=== PATIENT | female | born 1965 | race Caucasian/White ===

== ENCOUNTER 2020-05-14 18:20 | Emergency (ER) | payer OTHER ==
[~2020-05-14] VITALS: Ht 162.6 cm; Wt 63.5 kg
[2020-05-14] MEDS ORDERED: SODIUM CHLORIDE 0.9% 1,000 ML IVB ONE (19:30)
[2020-05-14 19:46] LABS: Basophils # (auto) 0.1 10 ^3/uL (0-0.2); Basophils % (auto) 0.7 % (0.0-2.0); Eosinophils # (auto) 0.1 10 ^3/uL (0-0.8); Eosinophils % (auto) 0.7 % (0.0-7.0); Hematocrit 36.5 % (36.0-46.0); Hemoglobin 12.6 g/dL (12.2-16.2); Mean Corpuscular Hemoglobin 32.8 pg (28.0-32.0); Mean Corpuscular Hgb Conc. 34.5 g/dL (32.0-36.0); Mean Corpuscular Volume 95.2 fL (80.0-100.0); Monocytes # (auto) 0.8 10 ^3/uL (0-1.3); Monocytes % (auto) 6.2 % (0.0-12.0); Neutrophils # (auto) 8.2 10 ^3/uL (1.6-8.6); Neutrophils % (auto) 67.4 % (37.0-80.0); Platelet Count (auto) 376 10^3/uL (140-450); Red Blood Cells 3.84 10^6/uL (4.0-5.20); Red Cell Distribution Width 13.7 % (11.8-14.3); White Blood Cell 12.2 10^3/uL (4.4-10.8)
[2020-05-14 20:02] LABS: Albumin 3.3 g/dL (3.4-5.0); Calcium 8.3 mg/dL (8.5-10.1); Magnesium 2.1 mg/dL (1.6-2.6); Potassium 3.5 mmol/L (3.5-5.1)
[2020-05-14 20:05] LABS: INR 1.02 (0.9-1.15); Partial Thromboplastin Time 28.1 sec (23.0-31.2)
[2020-05-14 20:08] LABS: BUN/Creatinine Ratio 13.1; Bilirubin, Total 0.2 mg/dL (0.2-1.0); Total Protein 6.7 g/dL (6.4-8.2)
[2020-05-14] MEDS ORDERED: IOHEXOL 350 MG/ML 100ML IJ ONE (20:48)
[2020-05-14] MEDS ORDERED: diphenhdrAMINE HCL 50 MG/1 ML VL IV ONE (21:15)
[2020-05-14 22:39] VITALS: BP 106/46
[2020-05-14 22:59] LABS: Urine Bacteria NONE SEEN /hpf (None Seen); Urine Blood Negative /uL (Negative); Urine WBC 2 /hpf (0 - 5)
== END 2020-05-15 01:40 | disposition home or self-care (01) ==
LOC: EDBD 18:20 → ER 18:26
DX: M54.2 Cervicalgia (principal); R07.89 Other chest pain; F17.210 Nicotine dependence, cigarettes, uncomplicated
CPT/HCPCS: 36415; 71275; 72125; 80053; 81001; 83735; 84484; 85025; 85610; 85730; 93005; 96361; 96374; 99285; J1200; Q9967